=== PATIENT | female | born 1955 | race African-American/Black ===

== ENCOUNTER 2017-02-16 23:28 | Inpatient (IN) | payer SELFPAY ==
[~2017-02-16] VITALS: Ht 162.6 cm; Wt 98.0 kg
[2017-02-17 00:40] LABS: BASOPHILS % 0.8 % (0.0-2.0); EOSINOPHILS % 2.2 % (0.0-5.0); HEMATOCRIT. 35.6 % (36.0-48.0); HEMOGLOBIN. 11.4 g/dL (12.0-16.0); LYMPHOCYTES % 25.3 % (20.0-50.0); MEAN CORPUSCULAR HEMOGLOBIN 26.1 pg (28.0-32.0); MEAN CORPUSCULAR VOLUME 81.7 fL (81.0-99.0); MEAN PLATELET VOLUME 9.6 fl (7.4-10.4); NEUTROPHILS % 62.7 % (40.0-76.0); PLATELET 193 x1000/uL (130-400); RED BLOOD CELL COUNT 4.36 mill/uL (4.2-5.4); RED CELL DISTRIBUTION WIDTH 15.5 % (11.6-14.6)
[2017-02-17 00:45] LABS: PROTHROMBIN TIME 10.3 sec (9.4-11.6)
[2017-02-17 01:04] LABS: CARBON DIOXIDE 26 mEq/L (21-32); CHLORIDE 106 mEq/L (98-107); TROPONIN I < 0.02 ng/mL (0.00-0.04)
[2017-02-17] MEDS ORDERED: ASPIRIN 81MG TABLET PO ONE (02:45)
[2017-02-17] MEDS ORDERED: FURO20TA4 PO (08:06)
[2017-02-17] MEDS ORDERED: METO-396 PO (08:09)
[2017-02-17] MEDS ORDERED: IBUP-2030 PO (08:09)
[2017-02-17] MEDS ORDERED: PROT40 PO (08:09)
[2017-02-17 08:19] VITALS: BP 164/80
[2017-02-17] MEDS ORDERED: MAGNESIUM/ALUMINUM HYDROXIDE/SIMETHICONE 30ML UDC PO PRN (09:00)
[2017-02-17] MEDS ORDERED: DIPHENHYDRAMINE 50MG/ML VIAL IV PRN (09:00)
[2017-02-17] MEDS ORDERED: ONDANSETRON HCL 4MG/2ML VIAL IV PRN (09:00)
[2017-02-17] MEDS ORDERED: CLONIDINE 0.1MG TABLET PO PRN (09:00)
[2017-02-17] MEDS ORDERED: GUAIFENESIN 200MG/10ML SUGAR FREE UDC PO PRN (09:00)
[2017-02-17] MEDS ORDERED: ACETAMINOPHEN 325MG TABLET PO PRN (09:00)
[2017-02-17] MEDS: ASPIRIN 325MG EC TABLET PO SCH (10:20)
[2017-02-17] MEDS: METOPROLOL TARTRATE 25MG TABLET PO SCH ×2 (10:20→21:02)
[2017-02-17] MEDS: PANTOPRAZOLE 40MG DR TABLET PO SCH (10:20)
[2017-02-17 11:01] VITALS: BP 150/84
[2017-02-17 11:38] VITALS: BP 147/83
[2017-02-17 15:31] VITALS: BP 153/78
[2017-02-17 20:00] VITALS: BP 139/83
[2017-02-17] MEDS: SODIUM CHLORIDE 0.9% INJ 3ML FLUSH IVF SCH (21:02)
[2017-02-18] VITALS: BP 134/60
[2017-02-18 04:00] VITALS: BP 134/60
[2017-02-18] MEDS: SODIUM CHLORIDE 0.9% INJ 3ML FLUSH IVF SCH (06:00)
[2017-02-18 08:36] VITALS: BP 157/77
[2017-02-18] MEDS: ASPIRIN 325MG EC TABLET PO SCH (09:08)
[2017-02-18] MEDS: METOPROLOL TARTRATE 25MG TABLET PO SCH (09:09)
[2017-02-18] MEDS: PANTOPRAZOLE 40MG DR TABLET PO SCH (09:10)
[2017-02-18 12:10] VITALS: BP 138/85
[2017-02-18 15:41] VITALS: BP 135/85
== END 2017-02-18 18:36 | disposition home or self-care (01) | DRG 203 ==
LOC: ER 23:29 → 6WST 02-17 02:47 → ENRESERV 02-17 04:50 → 6WST 02-17 07:53
PROVIDERS: ADMIT Internal Medicine; ATTEND Internal Medicine
DX: R07.89 Other chest pain (principal); I10 Essential (primary) hypertension; E66.9 Obesity, unspecified; M43.6 Torticollis; Z82.49 Family history of ischemic heart disease and other diseases of the circulatory system; Z83.3 Family history of diabetes mellitus; Z85.41 Personal history of malignant neoplasm of cervix uteri; Z86.73 Personal history of transient ischemic attack (TIA), and cerebral infarction without residual deficits; Z68.37 Body mass index [BMI] 37.0-37.9, adult; Z90.710 Acquired absence of both cervix and uterus; Z88.5 Allergy status to narcotic agent; Z91.041 Radiographic dye allergy status
CPT/HCPCS: 36415; 70450; 71010; 72125; 80053; 83880; 84484; 85025; 85610; 93005; 93306; 97162; 97166; 99285